=== PATIENT | female | born 1975 | race Caucasian/White ===

== ENCOUNTER 2019-07-07 14:20 | Emergency (ER) | payer MEDICARE, MEDICAID ==
[2019-07-07] MEDS ORDERED: Sodium Chloride 0.9% 10 ML Syringe FLUSH PRN (14:54)
[2019-07-07] MEDS ORDERED: Acetaminophen 500 MG Tab PO ONE (14:56)
[2019-07-07] MEDS ORDERED: Morphine 4 MG/ML Syringe IVPUSH ONE (14:57)
[2019-07-07] MEDS ORDERED: Sodium Chloride 0.9% 1,000 ML IV ONE ×2 (15:06→16:28)
--- NOTE | 2019-07-07 15:27 | EDM.PDOC ---
ED HPI GENERAL MEDICAL PROBLEM - General Chief Complaint: Fever Time Seen by Provider: 07/07/19 14:35 Source of Information: Reports: Patient, Provider History Limitations: Reports: No Limitations - History of Present Illness INITIAL COMMENTS - FREE TEXT/NARRATIVE: Pt. presents to ER from clinic. Pt. was sent to ER due to here severe symptoms. Pt. states that she has been experiencing severe, intensifying low back pain, fever, myalgia, and headache. Pt. was found to have a temp of approx. 103 degrees F in clinic. She states that she is having difficulty walking and standing and states that she was incontinent of urine. Denies any focal abdominal pain but complains of diffuse myalgia. She denies any dysuria, frequency or urgency. 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 Pt. 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 She states that she started using methamphetamine after having her opiate contact revoked at [facility] due to early refills. She has a history of asthma, hypertension, rheumatoid arthritis and fibromyalgia. She has a history of addiction, VANESSA, depression, and PTSD. Surgical history includes appendectomy and tubal ligation. Pt. denies any sick contacts. No recent travel outside of the [place]. Denies any trauma to her head or back. No nausea or vomiting. No melena, hematochezia, or hematemesis. Onset Date: 07/02/19 Location: Reports: Head, Back, Generalized Quality: Reports: Stabbing, Throbbing Improves with: Reports: Rest Worsens with: Reports: Movement Left Sacral Pain Score (Numeric/FACES): 10 - Related Data Allergies Allergy/AdvReac Type Severity Reaction Status Date / Time amoxicillin Allergy Hives Verified 07/07/19 14:49 Cephalosporins Allergy Respiratory Verified 07/07/19 14:49 Distress duloxetine [From Cymbalta] Allergy Other Verified 07/07/19 14:49 ketorolac tromethamine Allergy Cannot Verified 07/07/19 14:49 [From Toradol] Remember medroxyprogesterone Allergy Other Verified 07/07/19 14:49 [From Depo-Provera] Penicillins Allergy Hives Verified 07/07/19 14:49 Home Meds: Home Meds Lisinopril 1 tab PO BID 12/16/14 [History] Meloxicam 1 tab PO DAILY 12/16/14 [History] Atenolol 25 mg PO DAILY 05/01/16 [History] tiZANidine [Zanaflex] 4 mg PO TID 05/01/16 [History] Calcium Carbonate/Vitamin D3 [Caltrate-600 with Vit D Tab] 1 each PO DAILY 07/07 [History] Gabapentin [Neurontin] 300 mg PO TID 07/07/19 [History] Lisinopril 10 mg PO BID 07/07/19 [History] Melatonin 1 mg PO BEDTIME 07/07/19 [History] rOPINIRole [Requip] 0.5 mg PO TID 07/07/19 [History] Past Medical History Cardiovascular History: Reports: Other (See Below) Other Cardiovascular History: tachycardia Musculoskeletal History: Reports: Fibromyalgia, RA Other Musculoskeletal History: bursitis. myofacial disease Psychiatric History: Reports: Addiction, Anxiety, Depression - Past Surgical History HEENT Surgical History: Reports: Myringotomy w Tube(s), Oral Surgery GI Surgical History: Reports: Appendectomy, Cholecystectomy Female Surgical History: Reports: Tubal Ligation Social & Family History - Tobacco Use Smoking Status *Q: Unknown Ever Smoked ED ROS GENERAL - Review of Systems Review Of Systems: See Below Constitutional: Reports: Fever, Chills, Malaise, Weakness, Fatigue, Diaphoresis , Decreased Appetite HEENT: Reports: No Symptoms. Denies: Nose Pain, Rhinitis, Sinus Problem, Throat Pain Respiratory: Reports: Cough (chronic, secondary to smoking. No increase/ productivity since 07/02.) Endocrine: Reports: No Symptoms GI/Abdominal: Reports: Abdominal Pain (diffuse) : Reports: Flank Pain, Incontinence. Denies: Dysuria Musculoskeletal: Reports: Back Pain, Joint Pain, Muscle Pain, Muscle Stiffness Skin: Reports: No Symptoms Neurological: Reports: Tingling (some tingling in her feet/toes. Pt. attributes this to fibromyalgia.), Difficulty Walking Psychiatric: Reports: No Symptoms Hematologic/Lymphatic: Reports: No Symptoms ED EXAM, GENERAL - Physical Exam Exam: See Below Exam Limited By: No Limitations General Appearance: Alert, WD/WN, Lethargic, Mild Distress Eye Exam: Bilateral Eye: EOMI, Normal Fundi, Normal Inspection, PERRL Nose: Normal Inspection, Normal Mucosa, No Blood Throat/Mouth: Normal Inspection, Normal Lips, Normal Teeth, Normal Gums, Normal Oropharynx, Normal Voice, No Airway Compromise, Other (oral mucosa is dry) Head: Atraumatic, Normocephalic Neck: Normal Inspection, Supple, Non-Tender, Limited Range of Motion (pain with movement of neck) Respiratory/Chest: No Respiratory Distress, No Accessory Muscle Use, Chest Non- Tender, Decreased Breath Sounds Cardiovascular: Normal Peripheral Pulses, Regular Rate, Rhythm, No Edema, No JVD , No Murmur Peripheral Pulses: 4+: Radial (L) GI/Abdominal: Soft, Non-Tender, No Organomegaly, No Distention, No Mass, Pelvis Stable, Tender (diffuse tenderness) (Female) Exam: Deferred Back Exam: Normal Inspection, Full Range of Motion Extremities: Normal Inspection, Non-Tender, Other (severe pain with movement of her extremities) Neurological: Alert, Oriented, CN II-XII Intact, Normal Cognition, No Motor/ Sensory Deficits, Other (Unable to stand due to weakness and pain, incontinent of urine.). No: Sensory/Motor Deficit Psychiatric: Normal Affect, Normal Mood Skin Exam: Warm, Dry, Intact, No Rash, Pallor Course - Vital Signs Last Recorded V/S: Last Vital Signs Temp 38.8 C H 07/07/19 15:45 Pulse 108 H 07/07/19 15:45 Resp 18 07/07/19 15:45 BP 82/54 L 07/07/19 15:45 Pulse Ox 98 07/07/19 15:45 - Orders/Labs/Meds Orders: Active Orders 24 hr Category Date Time Status Abdomen Pelvis w Cont [CT] Stat Exams 07/07/19 14:55 Ordered Head wo Cont [CT] Stat Exams 07/07/19 14:55 Ordered COMPREHENSIVE METABOLIC PN,CMP [CHEM] Stat Lab 07/07/19 14:51 Ordered CRP [C-REACTIVE PROTEIN] [CHEM] Stat Lab 07/07/19 14:51 Ordered CULTURE BLOOD [BC] Stat Lab 07/07/19 14:54 Ordered CULTURE BLOOD [BC] Stat Lab 07/07/19 14:54 Ordered LACTIC ACID [CHEM] Stat Lab 07/07/19 14:52 Ordered MAGNESIUM [CHEM] Stat Lab 07/07/19 14:51 Ordered PHOSPHORUS [CHEM] Stat Lab 07/07/19 14:51 Ordered TSH ULTRASENSITIVE [CHEM] Stat Lab 07/07/19 14:51 Ordered Sodium Chloride 0.9% @ Wide Open(1,000ml) Med 07/07/19 15:06 Ordered Sodium Chloride 0.9% [Normal Saline] 1,000 ml IV ONETIME Sodium Chloride 0.9% [Saline Flush] Med 07/07/19 14:54 Active 10 ml FLUSH ASDIRECTED PRN Blood Culture x2 Reflex Set [OM.PC] Stat Oth 07/07/19 14:54 Ordered Peripheral IV Insertion Adult [OM.PC] Routine Oth 07/07/19 14:54 Ordered Medication Orders Sodium Chloride (Normal Saline) 1,000 mls @ 999 mls/hr IV ONETIME ONE Stop: 07/07/19 16:06 Last Admin: 07/07/19 15:00 Dose: 999 mls/hr Sodium Chloride (Saline Flush) 10 ml FLUSH ASDIRECTED PRN PRN Reason: Keep Vein Open Labs: Laboratory Tests 07/07/19 07/07/19 07/07/19 Range/Units 15:09 15:09 15:30 WBC 14.2 H (4.0-10.0) x10^3/uL RBC 3.69 L (4.00-5.50) x10^6/uL Hgb 9.7 L D (12.0-16.0) g/dL Hct 28.6 L (33.0-47.0) % MCV 77.5 L (78.0-93.0) fL MCH 26.3 (26.0-32.0) pg MCHC 33.9 (32.0-36.0) g/dL RDW Coeff of Merari 14.4 (10.0-15.0) % Plt Count 245 D (130-400) x10^3/uL Add Manual Diff Yes Neutrophils % (Manual) 86 H (50-80) % Lymphocytes % (Manual) 9 L (25-50) % Monocytes % (Manual) 5 (2-11) % Platelet Estimate Adequate Hypochromasia 1+ slight H Anisocytosis 1+ slight H PT 11.8 (10.0-12.8) SEC INR 1.0 L (2.0-3.5) Urine Color Yellow (YELLOW) Urine Appearance Cloudy H (CLEAR) Urine pH 6.0 (5.0-8.0) Ur Specific Alden 1.010 Urine Protein 30 H (NEGATIVE) mg/dL Urine Glucose (UA) Negative (NEGATIVE) mg/dL Urine Ketones Negative (NEGATIVE) mg/dL Urine Occult Blood Trace-lysed H (NEGATIVE) Urine Nitrite Positive H (NEGATIVE) Urine Bilirubin Negative (NEGATIVE) Urine Urobilinogen 0.2 (0.2) EU/dL Ur Leukocyte Esterase Trace H (NEGATIVE) Urine RBC Not seen (NOT SEEN) /HPF Urine WBC 0-5 (NOT SEEN) /HPF Ur Squamous Epith Cells Many H (NEGATIVE) /HPF Urine Bacteria Many H (NEGATIVE) /HPF Urine Mucus Not seen (NEGATIVE) /LPF Urine Yeast (Budding) Not seen Urine Opiates Screen (NEGATIVE) Ur Buprenorphine Scrn (NEGATIVE) Ur Oxycodone Screen (NEGATIVE) Ur EDDP (Meth Metab) (NEGATIVE) Urine Methadone Screen (NEGATIVE) Ur Barbiturates Screen (NEGATIVE) Ur Tricyclics Screen (NEGATIVE) Ur Phencyclidine Scrn (NEGATIVE) Ur Amphetamine Screen (NEGATIVE) U Methamphetamines Scrn (NEGATIVE) Urine MDMA Screen (NEGATIVE) U Benzodiazepines Scrn (NEGATIVE) U Cocaine Metab Screen (NEGATIVE) U Marijuana (THC) Screen (NEGATIVE) 07/07/19 Range/Units 15:30 WBC (4.0-10.0) x10^3/uL RBC (4.00-5.50) x10^6/uL Hgb (12.0-16.0) g/dL Hct (33.0-47.0) % MCV (78.0-93.0) fL MCH (26.0-32.0) pg MCHC (32.0-36.0) g/dL RDW Coeff of Merari (10.0-15.0) % Plt Count (130-400) x10^3/uL Add Manual Diff Neutrophils % (Manual) (50-80) % Lymphocytes % (Manual) (25-50) % Monocytes % (Manual) (2-11) % Platelet Estimate Hypochromasia Anisocytosis PT (10.0-12.8) SEC INR (2.0-3.5) Urine Color (YELLOW) Urine Appearance (CLEAR) Urine pH (5.0-8.0) Ur Specific Ald[place] Urine Protein (NEGATIVE) mg/dL Urine Glucose (UA) (NEGATIVE) mg/dL Urine Ketones (NEGATIVE) mg/dL Urine Occult Blood (NEGATIVE) Urine Nitrite (NEGATIVE) Urine Bilirubin (NEGATIVE) Urine Urobilinogen (0.2) EU/dL Ur Leukocyte Esterase (NEGATIVE) Urine RBC (NOT SEEN) /HPF Urine WBC (NOT SEEN) /HPF Ur Squamous Epith Cells (NEGATIVE) /HPF Urine Bacteria (NEGATIVE) /HPF Urine Mucus (NEGATIVE) /LPF Urine Yeast (Budding) Urine Opiates Screen Negative (NEGATIVE) Ur Buprenorphine Scrn Negative (NEGATIVE) Ur Oxycodone Screen Negative (NEGATIVE) Ur EDDP (Meth Metab) Negative (NEGATIVE) Urine Methadone Screen Negative (NEGATIVE) Ur Barbiturates Screen Negative (NEGATIVE) Ur Tricyclics Screen Negative (NEGATIVE) Ur Phencyclidine Scrn Negative (NEGATIVE) Ur Amphetamine Screen Positive H (NEGATIVE) U Methamphetamines Scrn Positive H (NEGATIVE) Urine MDMA Screen Negative (NEGATIVE) U Benzodiazepines Scrn Negative (NEGATIVE) U Cocaine Metab Screen Negative (NEGATIVE) U Marijuana (THC) Screen Negative (NEGATIVE) Meds: Medications Generic Name Dose Route Start Last Admin Trade Name Freq PRN Reason Stop Dose Admin Sodium Chloride 1,000 mls @ 999 mls/hr 07/07/19 15:06 07/07/19 15:00 Normal Saline IV 07/07/19 16:06 999 mls/hr ONETIME ONE Administration Sodium Chloride 10 ml 07/07/19 14:54 Saline Flush FLUSH ASDIRECTED PRN Keep Vein Open Discontinued Medications Generic Name Dose Route Start Last Admin Trade Name Freq PRN Reason Stop Dose Admin Acetaminophen 1,000 mg 07/07/19 14:56 07/07/19 15:23 Tylenol Extra Strength PO 07/07/19 14:57 1,000 mg ONETIME ONE Administration Ceftriaxone Sodium 2 gm 07/07/19 15:40 Rocephin IVPUSH 07/07/19 15:41 STAT ONE Morphine Sulfate 4 mg 07/07/19 14:57 07/07/19 15:23 Morphine IVPUSH 07/07/19 14:58 4 mg ONETIME ONE Administration - Radiology Interpretation Free Text/Narrative:: Chest x-ray reveals R upper lobe infiltrate. CT brain is negative CT abdomen and pelvis was obtained. Partially imaged cavitary nodular infiltrates of the R middle lobe. Trace R pleural effusion. No CT evidence of discitis/osteomyelitis - Re-Assessments/Exams Free Text/Narrative Re-Assessment/Exam: 07/07/19 15:47 IV access established. Pt. was given 1 liter or NS IV, acetaminophen 1000mg PO, and morphine 4 mg IV. She was given rocephin 2 gm IV and started on vancomycin 1 gm IV. Pt. blood pressure did decrease to approx. 82 systolic but was up to 96 systolic and maintained with infusion of normal saline. Departure - Departure Time of Disposition: 17:17 Disposition: DC/Tfer to [facility] 02 Condition: Critical Clinical Impression: Pneumonia, Sepsis, UTI (urinary tract infection) - Discharge Information Forms: ED Department Discharge - Problem List Review Problem List Initiated/Reviewed/Updated: Yes - My Orders Last 24 Hours: My Active Orders 07/07/19 14:51 COMPREHENSIVE METABOLIC PN,CMP [CHEM] Stat CRP [C-REACTIVE PROTEIN] [CHEM] Stat MAGNESIUM [CHEM] Stat PHOSPHORUS [CHEM] Stat TSH ULTRASENSITIVE [CHEM] Stat 07/07/19 14:52 LACTIC ACID [CHEM] Stat 07/07/19 14:54 CULTURE BLOOD [BC] Stat CULTURE BLOOD [BC] Stat Sodium Chloride 0.9% [Saline Flush] 10 ml FLUSH ASDIRECTED PRN Blood Culture x2 Reflex Set [OM.PC] Stat Peripheral IV Insertion Adult [OM.PC] Routine 07/07/19 14:55 Abdomen Pelvis w Cont [CT] Stat Head wo Cont [CT] Stat 07/07/19 15:06 Sodium Chloride 0.9% @ Wide Open(1,000ml) Sodium Chloride 0.9% [Normal Saline] 1 ,000 ml IV ONETIME - Assessment/Plan Last 24 Hours: My Active Orders 07/07/19 14:51 COMPREHENSIVE METABOLIC PN,CMP [CHEM] Stat CRP [C-REACTIVE PROTEIN] [CHEM] Stat MAGNESIUM [CHEM] Stat PHOSPHORUS [CHEM] Stat TSH ULTRASENSITIVE [CHEM] Stat 07/07/19 14:52 LACTIC ACID [CHEM] Stat 07/07/19 14:54 CULTURE BLOOD [BC] Stat CULTURE BLOOD [BC] Stat Sodium Chloride 0.9% [Saline Flush] 10 ml FLUSH ASDIRECTED PRN Blood Culture x2 Reflex Set [OM.PC] Stat Peripheral IV Insertion Adult [OM.PC] Routine 07/07/19 14:55 Abdomen Pelvis w Cont [CT] Stat Head wo Cont [CT] Stat 07/07/19 15:06 Sodium Chloride 0.9% @ Wide Open(1,000ml) Sodium Chloride 0.9% [Normal Saline] 1 ,000 ml IV ONETIME Plan: Pt. will be transferred to [facility] for sepsis secondary to pneumonia with possible septic emboli secondary to IVDA and urinary tract infection. Pt. received IV rocephin 2 gm in ER and vancomycin 1 gm IV. BP at time of transfer 96/34. HR 109. IV normal saline was continued. Pt. will need a dedicated CTA of the chest to determine if there is any emboli. No CT chest was performed as the patient presented without cough or chest congestion and was found on plain films as part of sepsis workup. I am not convinced that the patient doesn't have an epidural abscess, given her history of IV drug use. Her L spine continues to be exquisitely tender with light palpation. Dr. Hernandez accepts the patient in transfer. She will be transferred via [facility] ground ambulance. All questions were answered.
[2019-07-07] MEDS ORDERED: cefTRIAXone 2 GM Vial IVPUSH ONE (15:40)
[2019-07-07 15:42] LABS: BARBITURATE SCREEN,URINE NEGATIVE (NEGATIVE); BENZODIAZEPINES SCREEN,URINE NEGATIVE (NEGATIVE); EDDP,URINE SCREEN NEGATIVE (NEGATIVE); METHAMPHETAMINE SCREEN, URINE POSITIVE (NEGATIVE); TCA SCREEN,URINE NEGATIVE (NEGATIVE); THC SCREEN,URINE 50 NG/ML NEGATIVE (NEGATIVE)
--- NOTE | 2019-07-07 15:44 | CR ---
[id number] RAD/RAD Chest PA or AP 1V EXAM: RAD Chest PA or AP 1V INDICATION: FEVER. COMPARISON: None. DISCUSSION: Parenchymal opacity in the right upper lobe abutting the fissure. Findings are consistent with pneumonia in the clinical setting of infection. Left lung is clear. IMPRESSION: Right upper lobe pneumonia. Jun Cardenas MD 07/07/19 1549 Thank you for allowing us to participate in the care of your patient.
[2019-07-07 15:46] LABS: CHLORIDE,CL 93 mmol/L (98-107)
[2019-07-07 15:48] LABS: ANION GAP 15.4 mmol/L (10-20); SODIUM,NA 128 mmol/L (136-145)
[2019-07-07] MEDS ORDERED: Iopamidol 612 MG/ML 100 ML Bottle IVPUSH ONE (15:49)
[2019-07-07] MEDS ORDERED: Azithromycin 250 MG Tab PO ONE (15:50)
[2019-07-07] MEDS ORDERED: Ketorolac 15 MG/ML SDV IVPUSH ONE (16:28)
--- NOTE | 2019-07-07 17:01 | CT ---
[id number] CT/CT Abdomen Pelvis W IV EXAM: ABDOMEN AND PELVIS CT WITH CONTRAST INDICATION: Fever, chills, low back pain and history of IV drug use. COMPARISON: None. DISCUSSION: In the partially imaged right middle lobe there are are two 20 mm nodular peripheral opacities with central cavitation. In the context of known IV drug use these are most consistent with septic emboli. Trace right pleural effusion. The imaged lung bases are otherwise unremarkable. A mild circumferential thick-walled appearance of the distal esophagus suggests underlying esophagitis. The liver is mildly enlarged with fatty infiltration suggested. The spleen is at upper limits of normal for size. The gallbladder surgically absent with mild postcholecystectomy intrahepatic and extrahepatic duct dilation. Fluid-filled nondilated distal small bowel loops could be from recent fluid ingestion. Bilateral ovarian follicles the largest in the right measuring up to 23 mm in diameter. Trace free fluid in the pelvis may be physiologic. The pancreas, adrenal glands, kidneys, and colon are normal in appearance. The appendix is not identified, but there are no changes to suggest acute appendicitis. The osseous structures are unremarkable. There is no CT evidence of discitis-osteomyelitis. MRI would be suggested if there is continued clinical concern. IMPRESSION: 1. Partially imaged cavitary nodular infiltrates in the right middle lobe. In the context of IV drug use these are most consistent with septic emboli. 2. Trace right pleural effusion. 3. No CT evidence of discitis-osteomyelitis. Ugo Moy MD 07/07/19 [id number] Thank you for allowing us to participate in the care of your patient.
--- NOTE | 2019-07-07 17:04 | CT ---
[id number] CT/CT Head WO IV EXAM: NONCONTRAST HEAD CT INDICATION: Pain behind the right eye, fever and chills. COMPARISON: May 01, 2016. DISCUSSION: The ventricles and sulci are normal in size and configuration. The ellison and white matter are normal in attenuation. No mass effect or midline shift. No acute hemorrhage or extra-axial fluid collection. No acute territorial infarct is identified. A limited look at the orbits and paranasal sinuses is unremarkable. IMPRESSION: 1. Negative exam. Ugo Moy MD 07/07/19 [id number] Thank you for allowing us to participate in the care of your patient.
[2019-07-07 17:35] VITALS: PULSE 96
[2019-07-07] MEDS ORDERED: HYDROmorphone 1 MG/ML Syringe IVPUSH ONE (17:44)
[2019-07-07 17:46] VITALS: BP 96/53
== END 2019-07-07 18:08 | disposition short-term general hospital (02) ==
LOC: VM.ED 14:20
DX: A41.9 Sepsis, unspecified organism (principal); J18.9 Pneumonia, unspecified organism; N39.0 Urinary tract infection, site not specified; Z88.1 Allergy status to other antibiotic agents; Z88.0 Allergy status to penicillin; Z88.8 Allergy status to other drugs, medicaments and biological substances; Z79.899 Other long term (current) drug therapy; Z90.49 Acquired absence of other specified parts of digestive tract; Z98.51 Tubal ligation status
CPT/HCPCS: 36415; 70450; 71045; 74177; 80053; 80305; 81001; 83605; 83735; 84100; 84443; 85025; 85610; 86140; 87040; 87077; 96361; 96365; 96375; 99285; A9270; J0696; J1170; J2270; J3370; J7030; J7050; Q9967; 99284-GF

== ENCOUNTER 2019-07-19 14:04 | Inpatient (IN) | payer MEDICAID, MEDICARE ==
[2019-07-19] MEDS ORDERED: Ondansetron 4 MG Tab.DIS PO PRN (14:58)
--- NOTE | 2019-07-19 15:10 | PCM.HP.2 ---
H&P History of Present Illness - General Date of Service: 07/19/19 Admit Problem/Dx: Admission Diagnosis/Problem Admission Diagnosis/Problem Endocarditis Source of Information: Patient History Limitations: Reports: No Limitations - History of Present Illness Initial Comments - Free Text/Narative: Ms. Pacheco is a 44 yo female with PMH of HTN, anxiety, rheumatoid arthritis, and IV drug use who is admitted to swing bed to complete her antibiotic course for endocarditis. She was hospitalized at [facility] 07/07-07/17 for endocarditis complicated by septic pulmonary emboli. She was in the ICU for part of that hospitalization due to respiratory failure requiring intubation. She did end up leaving the hospital AMA on 07/17 due to wanting to see her son. She was then readmitted to [facility] last evening to arrange for PICC line placement, which was completed this morning. Transportation was arranged today to come to swing bed at [facility] in [place] to complete her antibiotic course. ID has recommended 4 weeks of IV nafcillin with a CT chest near the end of therapy to ensure that 4 weeks is all that is necessary. The patient reports that she is feeling well. She is extremely glad to be in [place] so that she is closer to her son and he can come and visit her here. She feels her strength is good today. She denies any shortness of breath, fever, or chills. She also denies any cough. She is just wondering if we can clarify the plan for antibiotics as she wants to be sure she knows how long she will be here and whether she can leave to go home while on the IV therapies. She voices understanding of the rationale for needing the antibiotics and is mainly concerned about her son. She does also wonder if we can do something for a vaginal yeast infection. She has had this in the past when she has been on penicillin and is now noticing discharge and irritation since being on the nafcillin. She also wonders if she can have a dose of Imodium. She received miralax in [place] due to constipation and is now having frequent soft bowel movements. - Related Data Allergies/Adverse Reactions: Allergies Allergy/AdvReac Type Severity Reaction Status Date / Time amoxicillin Allergy Hives Verified 07/07/19 14:49 Cephalosporins Allergy Respiratory Verified 07/07/19 14:49 Distress duloxetine [From Cymbalta] Allergy Other Verified 07/07/19 14:49 ketorolac tromethamine Allergy Cannot Verified 07/07/19 14:49 [From Toradol] Remember medroxyprogesterone Allergy Other Verified 07/07/19 14:49 [From Depo-Provera] Penicillins Allergy Hives Verified 07/07/19 14:49 Home Medications: Home Meds Meloxicam 15 mg PO DAILY 12/16/14 [History] Atenolol 25 mg PO DAILY 05/01/16 [History] tiZANidine [Zanaflex] 4 mg PO BID 05/01/16 [History] Gabapentin [Neurontin] 300 mg PO TID 07/07/19 [History] Melatonin 1 mg PO BEDTIME 07/07/19 [History] rOPINIRole [Requip] 0.5 mg PO TID 07/07/19 [History] Acetaminophen [Tylenol] 2 tab PO Q4HR PRN 07/19/19 [History] Ca/D3/Mag#11/Zinc/Plate Former/Mamadou/Bor [Caltrate 600+D Plus Tablet] 1 tab PO DAILY 07/19 [History] ClonazePAM [KlonoPIN] 1 mg PO BID 07/19/19 [History] Heparin Sodium,Porcine/PF [Heparin 300 Unit/3 ml (100/ml)] 300 units IV ASDIRECTED 07/19/19 [History] Nafcillin 2,000 mg IV Q4HR 07/19/19 [History] Ondansetron [Zofran ODT] 4 mg PO Q4HR PRN 07/19/19 [History] Sodium Chloride 0.9% [Saline Flush Sterile Syringe] 10 ml IV ASDIRECTED [History] Past Medical History HEENT History: Reports: None Cardiovascular History: Reports: Hypertension, Other (See Below) Other Cardiovascular History: tachycardia Respiratory History: Reports: None Gastrointestinal History: Reports: None Genitourinary History: Reports: None Musculoskeletal History: Reports: Fibromyalgia, RA Other Musculoskeletal History: bursitis. myofacial disease Neurological History: Reports: None Psychiatric History: Reports: Addiction, Anxiety, Depression Endocrine/Metabolic History: Reports: None Hematologic History: Reports: None Oncologic (Cancer) History: Reports: None Dermatologic History: Reports: None - Past Surgical History HEENT Surgical History: Reports: Myringotomy w Tube(s), Oral Surgery GI Surgical History: Reports: Appendectomy, Cholecystectomy Female Surgical History: Reports: Tubal Ligation Social & Family History - Family History Psychiatric: Reports: Other (See Below) (alcohol abuse) - Tobacco Use Smoking Status *Q: Current Every Day Smoker Used Tobacco, but Quit: Yes Month/Year Tobacco Last Used: June - Caffeine Use Caffeine Use: Reports: Coffee - Alcohol Use Alcohol Use History: No Alcohol Use in Last Twelve Months: No - Recreational Drug Use Recreational Drug Use: Yes Drug Use in Last 12 Months: Yes Recreational Drug Type: Reports: Marijuana/Hashish, Methamphetamine Recreational Drug Use Frequency: Weekly - Living Situation & Occupation Living situation: Reports: Single, with Family (son) Occupation: Disabled H&P Review of Systems - Review of Systems: Review Of Systems: See Below General: Reports: No Symptoms HEENT: Reports: No Symptoms Pulmonary: Reports: No Symptoms Cardiovascular: Reports: No Symptoms Gastrointestinal: Reports: No Symptoms Genitourinary: Reports: No Symptoms Musculoskeletal: Reports: No Symptoms Skin: Reports: No Symptoms Psychiatric: Reports: No Symptoms Neurological: Reports: No Symptoms Hematologic/Lymphatic: Reports: No Symptoms Exam - Exam Exam: See Below - Vital Signs Weight: 56.245 kg - Exam General: Alert, Oriented, Cooperative HEENT: Conjunctiva Clear, Mucosa Moist & Suring, Posterior Pharynx Clear, Pupils Equal, Pupils Reactive Neck: Supple, Trachea Midline. No: Lymphadenopathy, Thyromegaly Lungs: Clear to Auscultation, Normal Respiratory Effort Cardiovascular: Regular Rate, Regular Rhythm, Normal S1, Normal S2 GI/Abdominal Exam: Normal Bowel Sounds, Soft, Non-Tender, No Organomegaly, No Distention, No Mass Extremities: Non-Tender, No Pedal Edema, Normal Capillary Refill Peripheral Pulses: 2+: Radial (L), Radial (R) Skin: Warm, Dry, Intact *Q Meaningful Use (ADM) - VTE *Q VTE Anticoagulation Contraindications: Med/TX Not Indicated/Need - Problem List (1) Endocarditis SNOMED Code(s): 47009810 ICD Code: I38 - ENDOCARDITIS, VALVE UNSPECIFIED Status: Acute Current Visit: Yes Qualifiers: Endocarditis type: infective Infective endocarditis organism: bacterial Chronicity: acute Qualified Code(s): I33.0 - Acute and subacute infective endocarditis (2) Septic pulmonary embolism SNOMED Code(s): 560537284 ICD Code: I26.90 - SEPTIC PULMONARY EMBOLISM WITHOUT ACUTE COR PULMONALE Status: Acute Current Visit: Yes Qualifiers: Chronicity: acute Acute cor pulmonale presence: without acute cor pulmonale Qualified Code(s): I26.90 - Septic pulmonary embolism without acute cor pulmonale (3) Hypertension SNOMED Code(s): 92682250 ICD Code: I10 - ESSENTIAL (PRIMARY) HYPERTENSION Status: Chronic Current Visit: Yes Qualifiers: Hypertension type: essential hypertension Qualified Code(s): I10 - Essential (primary) hypertension (4) Anxiety SNOMED Code(s): 22596639 ICD Code: F41.9 - ANXIETY DISORDER, UNSPECIFIED Status: Chronic Current Visit: Yes (5) Rheumatoid arthritis SNOMED Code(s): 62852935 ICD Code: M06.9 - RHEUMATOID ARTHRITIS, UNSPECIFIED Status: Chronic Current Visit: Yes Qualifiers: Rheumatoid arthritis location: unspecified site Rheumatoid factor presence : unspecified presence Qualified Code(s): M06.9 - Rheumatoid arthritis, unspecified (6) Tobacco use SNOMED Code(s): 278252405 ICD Code: Z72.0 - TOBACCO USE Status: Chronic Current Visit: Yes (7) IVDU (intravenous drug user) SNOMED Code(s): 913684350 ICD Code: F19.90 - OTHER PSYCHOACTIVE SUBSTANCE USE, UNSPECIFIED, UNCOMPLICATED Status: Chronic Current Visit: Yes (8) Marijuana use SNOMED Code(s): 184759494 ICD Code: F12.90 - CANNABIS USE, UNSPECIFIED, UNCOMPLICATED Status: Chronic Current Visit: Yes (9) Diarrhea SNOMED Code(s): 65242591 ICD Code: R19.7 - DIARRHEA, UNSPECIFIED Status: Acute Current Visit: Yes Qualifiers: Diarrhea type: unspecified type Qualified Code(s): R19.7 - Diarrhea, unspecified (10) Yeast vaginitis SNOMED Code(s): 99754120 ICD Code: B37.3 - CANDIDIASIS OF VULVA AND VAGINA Status: Acute Current Visit: Yes Problem List Initiated/Reviewed/Updated: Yes Orders Last 24hrs: Active Orders 24 hr Category Date Time Status Admission Status [Patient Status] [ADT] Routine ADT 07/19/19 14:04 Active Notify Provider Vital Signs [RC] ASDIRECTED Care 07/19/19 14:56 Ordered Oxygen Therapy [RC] PRN Care 07/19/19 14:55 Ordered Up With Assistance [RC] ASDIRECTED Care 07/19/19 14:55 Ordered VTE/DVT Education [RC] PER UNIT ROUTINE Care 07/19/19 14:55 Ordered Vital Signs [RC] PER UNIT ROUTINE Care 07/19/19 14:55 Ordered Consult to Case Management/Child Welfare Social Worker [CONS] Cons 07/19/19 14:55 Ordered Routine Regular Diet [DIET] Diet 07/19/19 Dinner Ordered Acetaminophen [Tylenol] Med 07/19/19 14:58 Ordered 650 mg PO Q4HR PRN Atenolol [Tenormin] Med 07/20/19 08:00 Ordered 25 mg PO DAILY ClonazePAM [KlonoPIN] Med 07/19/19 20:00 Ordered 1 mg PO BID Gabapentin [Neurontin] Med 07/19/19 20:00 Ordered 300 mg PO TID Heparin Sodium [Heparin Lock Flush 100 Units/ML] Med 07/19/19 15:00 Ordered 300 unit IVPUSH ASDIRECTED Melatonin [Melatonin] Med 07/19/19 20:00 Ordered 1 mg PO BEDTIME Meloxicam [Meloxicam] Med 07/20/19 08:00 Ordered 1 tab PO DAILY Ondansetron [Zofran ODT] Med 07/19/19 14:58 Ordered 4 mg PO Q4HR PRN Sodium Chloride 0.9% Med 07/19/19 15:00 Ordered 10 ml IV ASDIRECTED rOPINIRole [Requip] Med 07/19/19 20:00 Ordered 0.5 mg PO TID tiZANidine [Zanaflex] Med 07/19/19 20:00 Ordered 4 mg PO BID Anticoagulation Contraindications VTE [AST] Per Unit Oth 07/19/19 14:55 Ordered Routine Resuscitation Status Routine Resus Stat 07/19/19 14:55 Ordered Assessment/Plan Comment:: 44 yo female admitted to swing bed to continue IV antibiotics for endocarditis complicated by septic pulmonary emboli. #1 Endocarditis #2 Septic Pulmonary Emboli - Most recent blood cultures were negative. - Patient will continue IV nafcillin for another 4 weeks. - Will repeat CT scan near the end of treatment to ensure resolution of lung findings. - Will consult ID as needed during the course of treatment. Does not appear patient needs any monitoring labs while on the nafcillin. - Discussed with her that she will be inpatient for the full 4 weeks of IV therapy and that there will be no passes allowed for her. She voices understanding and agreement with this plan. No restrictions on visitors at this time but will consider this if need be. #3 Hypertension #4 Anxiety #5 Rheumatoid Arthritis - Continue home medications. #6 Tobacco Use - Patient had been cutting back and has now done fine while hospitalized; she declines to have any nicotine patches at this time. #7 IV drug use #8 Marijuana - Precautions as above. - Social work consult ordered. #9 Diarrhea - Imodium ordered. #10 Yeast Vaginitis - Will do miconazole 3 times/weekly to keep symptoms at bay as this will likely be an ongoing issue with the duration of antibiotics. If symptoms still present at time of completion of therapy, then will do 1-2 doses of diflucan. Patient will be admitted to swing bed and will remain on swing bed for at least 4 weeks while she completes IV antibiotics. Full code - discussed on admission. She can ambulate ad patricia in her room and on the unit and will not require VTE prophylaxis at this time. - Mortality Measure Prognosis:: Good
[2019-07-19] MEDS ORDERED: SODIUM CHLORIDE 0.9% IV ONE (16:00)
[2019-07-19] MEDS ORDERED: NAFCILLIN IV ONE (16:00)
[2019-07-19] MEDS: Loperamide 2 MG Cap PO PRN (18:53)
[2019-07-19] MEDS: Acetaminophen 325 MG Tab PO PRN (22:34)
[2019-07-19] MEDS: ClonazePAM 0.5 MG Tab PO SCH (22:34)
[2019-07-19] MEDS: rOPINIRole 0.5 MG Tab PO SCH (22:37)
[2019-07-19] MEDS: Gabapentin 300 MG Cap PO SCH (22:37)
[2019-07-19] MEDS: tiZANidine 4 MG Tab PO SCH (22:37)
[2019-07-19] MEDS: Melatonin 3 MG Tab PO SCH (22:37)
[2019-07-20] MEDS: Meloxicam 7.5 MG Tab PO SCH (07:59)
[2019-07-20] MEDS: ClonazePAM 0.5 MG Tab PO SCH ×2 (07:59→21:32)
[2019-07-20] MEDS: Gabapentin 300 MG Cap PO SCH ×3 (07:59→21:32)
[2019-07-20] MEDS: rOPINIRole 0.5 MG Tab PO SCH ×3 (07:59→21:32)
[2019-07-20] MEDS: Atenolol 25 MG Tab PO SCH (07:59)
[2019-07-20] MEDS: tiZANidine 4 MG Tab PO SCH ×2 (07:59→21:32)
[2019-07-20] MEDS: Melatonin 3 MG Tab PO SCH (21:32)
[2019-07-21] MEDS: tiZANidine 4 MG Tab PO SCH ×2 (08:46→20:02)
[2019-07-21] MEDS: rOPINIRole 0.5 MG Tab PO SCH ×3 (08:46→20:02)
[2019-07-21] MEDS: Meloxicam 7.5 MG Tab PO SCH (08:46)
[2019-07-21] MEDS: Gabapentin 300 MG Cap PO SCH ×3 (08:46→20:02)
[2019-07-21] MEDS: ClonazePAM 0.5 MG Tab PO SCH ×2 (08:46→20:01)
[2019-07-21] MEDS: Atenolol 25 MG Tab PO SCH (08:46)
[2019-07-21] MEDS ORDERED: Fluconazole 100 MG Tab PO ONE (14:45)
[2019-07-21] MEDS: Acetaminophen 325 MG Tab PO PRN (19:59)
[2019-07-21] MEDS: Melatonin 3 MG Tab PO SCH (20:02)
[2019-07-21] MEDS: Loperamide 2 MG Cap PO PRN (20:06)
[2019-07-21] MEDS: Miconazole 2% Vaginal Crm 45 GM Tube TOP SCH (20:06)
[2019-07-21] MEDS: Sodium Chloride 0.9% 10 ML Syringe IV PRN (23:45)
[2019-07-21] MEDS: Heparin Sodium 100 Units/ML 3 ML Syringe IVPUSH PRN (23:45)
[2019-07-22] MEDS: Loperamide 2 MG Cap PO PRN ×3 (06:25→21:11)
[2019-07-22] MEDS: Sodium Chloride 0.9% 10 ML Syringe IV PRN (06:56)
[2019-07-22] MEDS: Heparin Sodium 100 Units/ML 3 ML Syringe IVPUSH PRN (06:56)
[2019-07-22] MEDS: rOPINIRole 0.5 MG Tab PO SCH ×3 (08:25→21:12)
[2019-07-22] MEDS: ClonazePAM 0.5 MG Tab PO SCH ×2 (08:25→21:12)
[2019-07-22] MEDS: Meloxicam 7.5 MG Tab PO SCH (08:25)
[2019-07-22] MEDS: tiZANidine 4 MG Tab PO SCH ×2 (08:26→21:11)
[2019-07-22] MEDS: Gabapentin 300 MG Cap PO SCH ×3 (08:26→21:12)
[2019-07-22] MEDS: Atenolol 25 MG Tab PO SCH (08:26)
[2019-07-23] MEDS: Melatonin 3 MG Tab PO SCH ×2 (00:18→21:38)
[2019-07-23] MEDS: ClonazePAM 0.5 MG Tab PO SCH (08:01)
[2019-07-23] MEDS: Meloxicam 7.5 MG Tab PO SCH (08:02)
[2019-07-23] MEDS: rOPINIRole 0.5 MG Tab PO SCH (08:02)
[2019-07-23] MEDS: tiZANidine 4 MG Tab PO SCH (08:03)
[2019-07-23] MEDS: Gabapentin 300 MG Cap PO SCH ×2 (08:03→11:37)
[2019-07-23] MEDS: Atenolol 25 MG Tab PO SCH (08:05)
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
[2019-07-23] MEDS ORDERED: ClonazePAM 0.5 MG Tab PO SCH (14:00)
[2019-07-23] MEDS ORDERED: rOPINIRole 0.5 MG Tab PO SCH (14:00)
[2019-07-23] MEDS ORDERED: Gabapentin 300 MG Cap PO SCH (14:00)
[2019-07-23] MEDS: Nicotine 14 MG/24 Hr Patch TRDERM SCH (15:25)
[2019-07-23] MEDS: ROPINIROLE 0.5 MG PO SCH ×2 (15:25→21:37)
[2019-07-23] MEDS: Gabapentin 300 MG Cap (OWN SUPPLY) PO SCH ×2 (15:26→21:36)
[2019-07-23] MEDS: TIZANIDINE 4 MG PO SCH (21:36)
[2019-07-23] MEDS: Miconazole 2% Vaginal Crm 45 GM Tube TOP SCH (23:04)
[2019-07-24] MEDS: Gabapentin 300 MG Cap (OWN SUPPLY) PO SCH ×3 (07:46→21:56)
[2019-07-24] MEDS: MELOXICAM 15 MG PO SCH (07:46)
[2019-07-24] MEDS: TIZANIDINE 4 MG PO SCH ×2 (07:46→21:56)
[2019-07-24] MEDS: ROPINIROLE 0.5 MG PO SCH ×3 (07:46→21:56)
[2019-07-24] MEDS: ATENOLOL 25 MG PO SCH (07:47)
[2019-07-24] MEDS ORDERED: MELOXICAM 7.5 MG PO SCH (08:00)
[2019-07-24] MEDS: Loperamide 2 MG Cap PO PRN (12:55)
[2019-07-24] MEDS: Nicotine 14 MG/24 Hr Patch TRDERM SCH (14:34)
[2019-07-24] MEDS: Melatonin 3 MG Tab PO SCH (21:57)
[2019-07-25 05:07] VITALS: PULSE 85
[2019-07-25 05:39] VITALS: BP 157/98
[2019-07-25] MEDS: ATENOLOL 25 MG PO SCH (09:59)
[2019-07-25] MEDS: Gabapentin 300 MG Cap (OWN SUPPLY) PO SCH (09:59)
[2019-07-25] MEDS: MELOXICAM 15 MG PO SCH (09:59)
[2019-07-25] MEDS: ROPINIROLE 0.5 MG PO SCH (10:00)
[2019-07-25] MEDS: TIZANIDINE 4 MG PO SCH (10:00)
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
== END 2019-07-25 12:00 | disposition left against medical advice (07) | DRG 288 ==
LOC: VM.MS 14:04
PROVIDERS: ADMIT Family Medicine; ATTEND Family Medicine
DX: I33.0 Acute and subacute infective endocarditis (principal); I26.90 Septic pulmonary embolism without acute cor pulmonale; I10 Essential (primary) hypertension; F41.9 Anxiety disorder, unspecified; M06.9 Rheumatoid arthritis, unspecified; M79.7 Fibromyalgia; F32.9 Major depressive disorder, single episode, unspecified; F17.210 Nicotine dependence, cigarettes, uncomplicated; F19.90 Other psychoactive substance use, unspecified, uncomplicated; F12.90 Cannabis use, unspecified, uncomplicated; B37.3 Candidiasis of vulva and vagina; R19.7 Diarrhea, unspecified; Z88.1 Allergy status to other antibiotic agents; Z88.8 Allergy status to other drugs, medicaments and biological substances; Z88.0 Allergy status to penicillin; Z79.899 Other long term (current) drug therapy; Z90.49 Acquired absence of other specified parts of digestive tract; Z98.51 Tubal ligation status; Z72.0 Tobacco use
CPT/HCPCS: 82565; 84460; 85025; A9270-GY; J1642; J7040; S0032

== ENCOUNTER 2022-09-30 10:51 | Emergency (ER) | payer MEDICAID, MEDICARE ==
[2022-09-30 11:27] VITALS: BP 104/67; PULSE 81
[2022-09-30 11:47] LABS: STREP A BY PCR DETECTED (NOT DETECT)
[2022-09-30 12:02] LABS: CORONAVIRUS COVID-19 NAA NEGATIVE (NEGATIVE)
[2022-09-30 12:04] LABS: RESPIRATORY SYNCYTIAL VIR NAA NEGATIVE (NEGATIVE)
== END 2022-09-30 12:15 | disposition home or self-care (01) ==
LOC: VM.ED 10:51
DX: J10.1 Influenza due to other identified influenza virus with other respiratory manifestations (principal); J02.0 Streptococcal pharyngitis; I10 Essential (primary) hypertension; M06.9 Rheumatoid arthritis, unspecified; Z72.0 Tobacco use; Z88.0 Allergy status to penicillin; Z88.1 Allergy status to other antibiotic agents; Z88.5 Allergy status to narcotic agent; Z88.8 Allergy status to other drugs, medicaments and biological substances; Z79.899 Other long term (current) drug therapy; Z20.822 Contact with and (suspected) exposure to COVID-19
CPT/HCPCS: 0241U; 87651-QW; 99283; 99284